=== PATIENT | female | born 1945 | race Caucasian/White ===

== ENCOUNTER 2023-11-25 16:07 | Emergency (ER) | payer MEDICARE, OTHER, SELFPAY ==
[2023-11-25 16:17] VITALS: BP 118/70; PULSE 73; RESP 18; TEMP 36.9; O2SAT 96; BMI 28.3
[2023-11-25 17:22] LABS: Chloride* 107 mmol/L (96-114)
[2023-11-25 17:23] LABS: Potassium* 3.3 mmol/L (3.6-5.1); Sodium* 137 mmol/L (135-149)
[2023-11-25 17:25] LABS: Anion Gap 10 mEq/L (7-15); Carbon Dioxide* 20 mmol/L (20-32); Creatinine* 0.6 mg/dL (0.5-1.5); Est. Creatinine Clearance* 41.33; Estimated Glomerular Filt Rate 93 ml/min
[2023-11-25 17:26] LABS: Blood Urea Nitrogen* 13 mg/dL (7-30); Calcium* 9.3 mg/dL (8.4-10.6); Glucose* 96 mg/dL (60-115)
--- NOTE | 2023-11-25 17:47 | CRLHL7_ITS ---
For Patients: As a result of the Century Cures Act, medical imaging exams and procedure reports are released immediately into your electronic medical record. You may view this report before your referring provider. If you have questions, please contact your health care provider. INDICATIONS: Chest pain. Shortness of breath. TECHNIQUE: Chest 2 view. COMPARISON: None FINDINGS: No pneumothorax or pleural effusion. Lungs are clear. Cardiac and mediastinal contours are within normal limits. Upper abdomen and osseous structures as imaged show no acute abnormality. IMPRESSION: No evidence of acute cardiopulmonary disease. Dictated by Evelio Odonnell MD @ 11/25/2023 7:46:40 PM (Electronically Signed)
[2023-11-25 17:56] LABS: Basophils Absolute Auto 0.01 K/uL (0.00-0.30); Basophils Percent Auto 0.2 % (0.0-3.0); Eosinophils Absolute Auto 0.02 K/uL (0.00-0.50); Eosinophils Percent Auto 0.3 % (0.0-7.0); Hematocrit 41.7 % (33.0-51.0); Hemoglobin* 13.9 gm/dL (12.0-16.0); Lymphocytes Absolute Auto 1.51 K/uL (0.90-2.90); Lymphocytes Percent Auto 25.4 % (20-44); Mean Corpuscular HGB Conc 33 gm/dL (32-36); Mean Corpuscular Hemoglobin 30 pg (26-34); Mean Corpuscular Volume 89 fL (80-100); Monocytes Percent Auto 17.2 % (0.0-11.0); Neutrophils Absolute Auto 3.38 K/uL (1.7-7.0); Neutrophils Percent Auto 56.9 % (42.0-72.0); Platelet Count* 133 K/uL (140-440); RDW Coefficient of Variation % 14.6 % (11.5-15.5); Red Blood Count 4.68 m/uL (4.00-5.20); White Blood Count* 5.94 K/uL (4.50-11.00)
[2023-11-25 18:04] LABS: Slide Review Reflex No
[2023-11-25 18:22] LABS: Troponin I* < 0.01 ng/mL (0.01-0.04)
--- NOTE | 2023-11-25 19:00 | ED_ITS ---
HPI - General Adult General Date Seen: 11/25/23 Chief complaint: Cough Stated complaint: covid+ Time Seen by Provider: 11/25/23 17:41 Source: patient Mode of arrival: ambulatory Limitations: no limitations History of Present Illness HPI narrative: Patient is a 78-year-old female presenting to the emergency department for COVID. She states she started having symptoms 2 days ago. She had contact with her son who tested positive for COVID. She states her symptoms include mild chest pain when coughing, mild shortness of breath, and diffuse muscle aches. She has not had any nausea but does admit to not having much of an appetite denies fevers, chills, diarrhea, constipation, lightheadedness, dizziness, weakness, numbness. She does states she feels mildly fatigued. He tested positive for COVID this morning. She is hoping to get Paxlovid. Related Data Home Medications Medication Instructions Recorded Confirmed adalimumab 40 mg/0.4 mL 40 mg subcut Q2W 11/25/23 11/25/23 subcutaneous pen kit (Humira(CF) Pen) furosemide 20 mg tablet 20 mg PO DAILY 11/25/23 11/25/23 ketorolac 0.5 % eye drops drp 11/25/23 levothyroxine 100 mcg tablet 100 mcg PO DAILY 11/25/23 11/25/23 (Euthyrox) lidocaine 5 % topical patch 1 patch topical DAILY 11/25/23 11/25/23 losartan 25 mg tablet 25 mg PO DAILY 11/25/23 11/25/23 methenamine hippurate 1 gram tablet 1 g PO DAILY 11/25/23 11/25/23 metoprolol tartrate 100 mg tablet 100 mg PO DAILY 11/25/23 11/25/23 moxifloxacin 0.5 % eye drops drp 11/25/23 peg 400-propylene glycol 0.4 %-0.3 drp 11/25/23 % eye drops (Systane (propylene glycol)) rosuvastatin 40 mg tablet 40 mg PO DAILY 11/25/23 11/25/23 Previous Rx's Medication Instructions Recorded nirmatrelvir 300 mg (150 mg See Rx Instructions PO .COMPLEX 11/25/23 x2)-ritonavir 100 mg tablet,dose #30 ea pack (Paxlovid) Allergies Allergy/AdvReac Type Severity Reaction Status Date / Time acetaminophen [From Percocet] Allergy Verified 11/25/23 16:33 ampicillin Allergy Verified 11/25/23 16:33 atorvastatin Allergy Verified 11/25/23 16:33 cephalexin [From Keflex] Allergy Verified 11/25/23 16:33 hydrocodone Allergy Verified 11/25/23 16:33 infliximab Allergy Verified 11/25/23 16:33 lisinopril Allergy Verified 11/25/23 16:33 morphine Allergy Verified 11/25/23 16:33 oxycodone [From Percocet] Allergy Verified 11/25/23 16:33 prednisone Allergy Verified 11/25/23 16:33 simvastatin Allergy Verified 11/25/23 16:33 Sulfa (Sulfonamide Allergy Verified 11/25/23 16:33 Antibiotics) etanercept AdvReac Verified 11/25/23 16:33 lovastatin AdvReac Verified 11/25/23 16:33 flu shot Allergy Uncoded 11/25/23 16:33 Review of Systems Status of ROS: Reports: 10 or more systems reviewed and unremarkable except as noted in History and below PFSH PFS Social History Smoking Status: Unknown if ever smoked Exam Narrative: Exam Narrative: Const: Well-nourished, Well-developed, in no distress Eyes: PERRL, no conjunctival injection, and symmetrical lids HENT: Atraumatic external nose and ears. Moist mucous membranes. Neck: Symmetric, trachea midline, No thyromegaly. CVS: RRR, No murmurs or gallops. Peripheral pulses 2+ and equal in all extremities RESP: Unlabored respiratory effort. Clear to auscultation bilaterally. GI: Nontender/Nondistended, No rebound or guarding. MSK:Extremities w/o deformity, Normal Active ROM Skin: Warm, Dry. No rashes or lesions. Neuro: Normal Muscle tone, No focal neurological deficits. Psych: Awake, Alert, & Oriented x3. Appropriate mood and affect. Const: Vital Signs, click to edit/add: Vital Signs - 24 hr 11/25/23 16:17 Temperature 98.4 F Pulse Rate [Right Pulse Oximeter] 73 Respiratory Rate 18 Blood Pressure [Ri ght Upper Arm] 118/70 Pulse Oximetry 96 Oxygen Delivery Me thod Room Air Course Vital Signs Vital signs: Initial Vital Signs Temperature 98.4 F 11/25/23 16:17 Temperature Source Temporal Artery Scan 11/25/23 16:17 Pulse Rate 73 11/25/23 16:17 Respiratory Rate 18 11/25/23 16:17 Blood Pressure 118/70 11/25/23 16:17 Blood Pressure Mean 86 11/25/23 16:17 Blood Pressure Position Sitting 11/25/23 16:17 Pulse Oximetry 96 11/25/23 16:17 Oxygen Delivery Method Room Air 11/25/23 16:17 Vital Signs Temperature 98.4 F 11/25/23 16:17 Pulse Rate 73 11/25/23 16:17 Respiratory Rate 18 11/25/23 16:17 Blood Pressure 118/70 11/25/23 16:17 Pulse Oximetry 96 11/25/23 16:17 Oxygen Delivery Method Room Air 11/25/23 16:17 Temperature 98.4 F 11/25/23 16:17 Pulse Rate 73 11/25/23 16:17 Respiratory Rate 18 11/25/23 16:17 Blood Pressure 118/70 11/25/23 16:17 Pulse Oximetry 96 11/25/23 16:17 Oxygen Delivery Method Room Air 11/25/23 16:17 Medical Decision Making MDM Narrative Medical decision making narrative: Patient is a 78-year-old female presenting to the emergency department for COVID. She does states she has mild chest pain shortness of breath with coughing while this is almost certainly from her COVID we will check EKG, troponin, chest x-ray, BMP, CBC. Do not believe it is necessary to recheck her for COVID. She states she is otherwise feeling fine. CBC, BMP, troponin all returned showing no concerning findings. EKG shows no concerning findings Chest x-rays reviewed by myself and shows no acute abnormalities. I spoke to her about her med list and she no longer takes lidocaine patches which might have a reaction with Paxlovid. I informed her to stop her statin which she is agreeable to. She will be discharged home on Paxlovid. Lab Data Labs: Lab Results 11/25/23 11/25/23 Range/Units 16:58 17:50 WBC 5.94 (4.50-11.00) K/uL RBC 4.68 (4.00-5.20) m/uL Hgb 13.9 (12.0-16.0) gm/dL Hct 41.7 (33.0-51.0) % MCV 89 (80-100) fL MCH 30 (26-34) pg MCHC 33 (32-36) gm/dL RDW Coeff of Ben 14.6 (11.5-15.5) % Plt Count 133 L (140-440) K/uL Neut % (Auto) 56.9 (42.0-72.0) % Lymph % (Auto) 25.4 (20-44) % [place] % (Auto) 17.2 H (0.0-11.0) % Eos % (Auto) 0.3 (0.0-7.0) % Baso % (Auto) 0.2 (0.0-3.0) % Neut # (Auto) 3.38 (1.7-7.0) K/uL Lymph # (Auto) 1.51 (0.90-2.90) K/uL [place] # (Auto) 1.00 H (0.00-0.90) K/UL Eos # (Auto) 0.02 (0.00-0.50) K/uL Baso # (Auto) 0.01 (0.00-0.30) K/uL Abs Immat Gran (auto) 0.00 (0.00-0.30) K/uL Imm/Tot Granulo (auto) 0.0 % Sodium 137 (135-149) mmol/L Potassium 3.3 L (3.6-5.1) mmol/L Chloride 107 (96-114) mmol/L Carbon Dioxide 20 (20-32) mmol/L Anion Gap 10 (7-15) mEq/L BUN 13 (7-30) mg/dL Creatinine 0.6 (0.5-1.5) mg/dL Estimated Creat Clear 41.33 Estimated GFR 93 ml/min Glucose 96 (60-115) mg/dL Calcium 9.3 (8.4-10.6) mg/dL Troponin I < 0.01 L (0.01-0.04) ng/mL Lab Acknowledgement Test Added ECG Data Attestation: I personally reviewed and interpreted this ECG as follows: Prior ECG tracings: not available for review Interpretation: Normal sinus rhythm with a rate 65 beats per minute, normal intervals, normal axis, no ST or T-wave abnormalities. Discharge Plan Discharge Clinical Impression: COVID Patient Disposition: Home, Self-Care Condition: Stable Instructions: COVID-19 (Coronavirus Disease 2019) (ED) Additional Instructions: Do not take your Crestor while you are taking Paxlovid. Do not take lidocaine patches while using Paxlovid. Return to the emergency department for new or worsening symptoms Prescriptions: New Paxlovid 300 mg (150 mg x 2)-100 mg tablets,dose pack See Rx Instructions .ROUTE .COMPLEX Qty: 30 0RF Rx Instructions: take TWO 150 mg tablets of nirmatrelvir with ONE 100 mg tablet of ritonavir twice daily for 5 days No Action metoprolol tartrate 100 mg tablet 100 mg PO DAILY ketorolac 0.5 % drops Patient Comments: [NO ORIGINAL SIG] methenamine hippurate 1 gram tablet 1 g PO DAILY lidocaine 5 % adhesive patch,medicated 1 patch topical DAILY losartan 25 mg tablet 25 mg PO DAILY furosemide 20 mg tablet 20 mg PO DAILY moxifloxacin 0.5 % drops Patient Comments: [NO ORIGINAL SIG] Systane (propylene glycol) 0.4-0.3 % drops Patient Comments: [NO ORIGINAL SIG] Humira(CF) Pen 40 mg/0.4 mL pen injector kit 40 mg subcut Q2W levothyroxine [Euthyrox] 100 mcg tablet 100 mcg PO DAILY rosuvastatin 40 mg tablet 40 mg PO DAILY Follow Up/Referrals: Provider,Not a Local [Primary Care Provider] - Stand Alone Forms: [facility] [employer] Info Instructions
[2023-11-25 19:15] VITALS: BP 118/70; PULSE 73; RESP 18; TEMP 36.9
== END 2023-11-25 19:15 | disposition home or self-care (01) ==
PROVIDERS: Emergency Provider Student in an Organized Health Care Education/Training Program
DX: U07.1 COVID-19 (principal)
CPT/HCPCS: 36415; 71046; 80048; 84484; 85025; 93005; 99283; 99284; 99285